=== PATIENT | female | born 2000 | race Caucasian/White ===

== ENCOUNTER 2023-10-08 13:58 | Emergency (ER) | payer OTHER ==
[~2023-10-08] VITALS: Ht 147.3 cm; Wt 83.5 kg
[2023-10-08 14:37] VITALS: BP_SYST 153; PULSE 75; RESP 22; TEMP 98.3; O2SAT 98
[2023-10-08 15:21] LABS: INFLUENZA TYPE A Negative (NEGATIVE); INFLUENZA TYPE B NEGATIVE (NEGATIVE)
[2023-10-08] MEDS ORDERED: IBUP-1969 PO (15:39)
[2023-10-08] MEDS ORDERED: BENZ100C92 PO (15:39)
[2023-10-08] MEDS ORDERED: OSEL75CA PO (15:39)
[2023-10-08 16:47] VITALS: BP_SYST 142; PULSE 75; RESP 22; TEMP 98.3; O2SAT 98
== END 2023-10-08 16:53 | disposition home or self-care (01) ==
LOC: SED 13:58
DX: J10.1 Influenza due to other identified influenza virus with other respiratory manifestations (principal); R05.9 Cough, unspecified; R09.81 Nasal congestion; M79.10 Myalgia, unspecified site; Z88.0 Allergy status to penicillin; Z79.899 Other long term (current) drug therapy; Z20.822 Contact with and (suspected) exposure to COVID-19
CPT/HCPCS: 36415; 99283

== ENCOUNTER 2023-10-14 22:49 | Emergency (ER) | payer OTHER ==
[~2023-10-14] VITALS: Ht 147.3 cm; Wt 81.6 kg
[~2023-10-14 22:49] MED LIST: BENZ100C92 PO; IBUP-1969 PO; OSEL75CA PO
[2023-10-14 23:15] VITALS: BP_SYST 139; PULSE 90; RESP 18; TEMP 96.8; O2SAT 97
[2023-10-15] MEDS ORDERED: PRED50TA PO (01:03)
== END 2023-10-15 01:36 | disposition home or self-care (01) ==
LOC: SED 22:49
DX: R06.02 Shortness of breath (principal); J45.909 Unspecified asthma, uncomplicated; R05.9 Cough, unspecified; R51.9 Headache, unspecified; Z88.0 Allergy status to penicillin; Z87.09 Personal history of other diseases of the respiratory system; Z79.899 Other long term (current) drug therapy
CPT/HCPCS: 71045; 99283